=== PATIENT | male | born 1945 | race Caucasian/White ===

== ENCOUNTER 2018-06-30 12:12 | Emergency (ER) | payer MEDICARE, OTHER, SELFPAY ==
[2018-06-30 12:19] VITALS: BP 165/83; PULSE 70; RESP 20; TEMP 36.7; O2SAT 99; BMI 26.2
--- NOTE | 2018-06-30 13:01 | DI.US.S_ITS ---
PROCEDURE: US SCROTUM INDICATIONS: R scrotal swelling and pain TECHNIQUE: Real-time scanning was performed of the scrotum and testicles, with image documentation. Color and pulse Doppler interrogation was performed of both testicles. COMPARISON: None. FINDINGS: Right: Testicle is normal in size at the 4 x 2.0 x 3.0 cm, and homogenous in echotexture. There is a large simple appearing right epididymal head cyst measuring up to 5.1 cm. No hydrocele or varicoceles. Overlying scrotal skin is normal in thickness. Left: Testicle is normal in size at 3.9 x 1.9 x 2.6 cm, and homogeneous in echotexture. There is an left-sided epididymal head cyst measuring up to 2.2 cm. No varicoceles. There is a small varicocele identified on the left, which is more pronounced with Valsalva measures up to 7 mm in diameter. Overlying scrotal skin is normal in thickness. Doppler: Color and pulse Doppler demonstrate normal and symmetric arterial flow in both testicles. IMPRESSION: 1. No evidence of a testicular mass, testicular torsion, or epididymal orchitis. 2. Large bilateral epididymal cysts (right greater than left). 3. Small left-sided varicocele. Dictated by: Ryan Maguire M.D. on 06/30/2018 at 14:01 Approved by: Ryan Maguire M.D. on 06/30/2018 at 14:07
--- NOTE | 2018-06-30 13:20 | ED_ITS ---
HPI - Male Genitourinary General Chief complaint: Urogenital-Male Stated complaint: ENLARGED TESTICLE Time Seen by Provider: 06/30/18 12:22 Source: patient Mode of arrival: ambulatory Limitations: no limitations History of Present Illness HPI Narrative: Patient complains of an enlarged and uncomfortable right testicle. He states that this has been going on for several days, and he is concerned and wants to make sure everything is okay. Patient denies any fevers or chills; no dysuria; no penile discharge. Patient is and has been monogamous for years. Patient has no history of diabetes or cancer. He is otherwise healthy. No other complaints this time. No history of hernia; no change in the degree of swelling with upright position versus supine, although patient does note that the pain seems to get worse when he lays back. Patient has not noticed any testicular mass or enlarged lymph nodes. Related Data Home Medications Medication Instructions Recorded Confirmed ferrous sulfate 27 mg iron tablet 2 tab PO DAILY tab 06/28/18 06/30/18 Allergies Allergy/AdvReac Type Severity Reaction Status Date / Time NO KNOWN DRUG ALLERGIES - Allergy Unknown Uncoded 06/28/18 11:13 NKDA Review of Systems Review of Systems All systems reviewed & are unremarkable except as noted in HPI and below Constitutional Denies chills, Denies fever(s), Denies lethargy and Denies weakness Eyes Denies change in vision, Denies eye discharge, Denies irritation and Denies loss of vision ENT Ears, Nose, Mouth, and Throat: Denies change in voice, Denies neck pain and Denies sore throat Cardiovascular Denies chest pain, Denies irregular heart rhythm, Denies lightheadedness, Denies palpitations, Denies dyspnea, Denies dyspnea on exertion and Denies orthopnea Respiratory Denies cough, Denies dyspnea, Denies dyspnea on exertion and Denies wheezing Gastrointestinal Gastrointestinal: Denies abdominal pain, Denies change in bowel habits, Denies diarrhea, Denies nausea and Denies vomiting Genitourinary Denies hematuria, Denies flank pain, Reports scrotal swelling, Denies urinary incontinence and Denies urinary urgency Musculoskeletal Denies neck pain Integumentary/Breasts Denies pruritus, Denies erythema, Denies rash and Denies wounds Neurologic Denies confusion, Denies loss of vision and Denies weakness Psychiatric Denies anxiety, Denies confusion, Denies depression, Denies homicidal ideation and Denies suicidal ideation Endocrine Denies palpitations Hematologic/Lymphatic Denies easy bruising Allergic/Immunologic Denies wheezing [facility] Medical History GERD (gastroesophageal reflux disease) (Chronic 1995) Hearing loss (Chronic 1951) Left rotator cuff tear (Chronic 2000) Right rotator cuff tear (Chronic 1981) Shoulder pain (Chronic 2015) Tinnitus (Chronic 2004) Anemia (Resolved) Chicken pox (Resolved 1955) Fractures (Resolved) Measles (Resolved 1951) Mumps (Resolved 1952) Recurrent sinusitis (Resolved 1969) Surgical History Anesthesia (Resolved) History of sinus surgery (Resolved 1993) Status post hemorrhoidectomy (Resolved 2002) Family History Brother Cancer Glioblastoma Father Cancer Mesothelioma Grandfather Heart disease Grandmother Heart disease Mother Heart disease Parkinson's disease Grandfather Accident Grandmother No problems noted. Social History Smoking Status: Former smoker Exam Initial Vital Signs Initial Vital Signs: Vital Signs Temperature 98.1 F 06/30/18 12:19 Pulse Rate 70 06/30/18 12:19 Respiratory Rate 20 06/30/18 12:19 Blood Pressure 165/83 H 06/30/18 12:19 Pulse Oximetry 99 06/30/18 12:19 Const General: cooperative and well developed Nutritional Appearance: well nourished Orientation: alert, awake, oriented x3 and not confused [facility] Head: normocephalic and atraumatic Ears: external ears normal and TM's normal bilaterally Nose: external nose normal and No nasal discharge Face and sinus: sinuses nontender, face symmetric, no sinus tenderness and No dry mucous membranes Mouth: oral mucosae normal and moist mucous membranes Teeth and gingiva: dentition normal Throat: tonsils normal and uvula midline Eyes General: appearance normal, both eyes and all related structures Eyelids: eyelids normal Conjunctivae: conjunctivae normal Sclera: sclerae normal Pupils: PERRL EOM: EOM intact bilaterally Neck Neck: normal visual inspection, trachea midline, No lymphadenopathy, No midline deformity and No JVD Lymphatic: No lymphedema Chest Chest: normal inspection of the chest Resp Effort & Inspection: normal respiratory effort, able to speak in complete sentences, no respiratory distress and no use of accessory muscles Auscultation: clear to auscultation bilaterally, no rales, no rhonchi and no wheezes Cardio Rate: regular rate Rhythm: regular rhythm Heart Sounds: no click, no gallops, no murmurs and no rubs Pulses: normal peripheral pulses GI Inspection: non-distended Palpation: soft, no hepatosplenomegaly, No guarding, No pulsatile mass and No tender Auscultation: normal bowel sounds Other: Patient has no skin changes of his scrotum. Testicles feel about equal in size, are nontender, and no masses are palpable. No hernia is noted on exam. No lymphadenopathy inguinal E. No penile discharge. Right scrotum may be slightly bigger than the left. Back/Spine/Pelvis Back: No CVA tenderness Cervical Spine: cervical ROM normal and No pain with cervical ROM Thoracic/Lumbar Spine: thoracic and lumbar spine normal to inspection Skin General: no rashes or lesions noted, No jaundice and No petechiae Neuro General: alert, oriented x3, gait normal and no focal motor deficits Speech: speech normal Extrem General: full ROM, no clubbing, cyanosis or edema, no pedal edema and no calf tenderness Psych Appearance: well kempt Mental Status: mental status grossly normal Attitude: cooperative Thought Content: normal and suicidality Judgment: judgment good Course Course Narrative: Ultrasound was performed of the patient's scrotum to evaluate his complaints of discomfort and a sense of enlargement. Orders Ordered: ED Orders 06/30/18 13:01 US scrotum Stat Vital Signs - 8 hr 06/30/18 12:19 Temperature 98.1 F Pulse Rate 70 Respiratory Rate 20 Blood Pressure 165/83 H Pulse Oximetry 99 MDM - Male Genitourinary Medical Records Attestation: I reviewed the patient's medical records. Imaging Data US scrotum: Radiologist's impression: [address] [address] Ultrasound Report Signed Patient: Johny Rosales MR#: [id number] : 1945 Acct:[id number] Age/Sex: 72 / M Date of Service: 12/13/18 Loc: ED Accession Number: [id number] Procedure: US scrotum Ordering Provider: Danielle Coleman MD PROCEDURE: US SCROTUM INDICATIONS: R scrotal swelling and pain TECHNIQUE: Real-time scanning was performed of the scrotum and testicles, with image documentation. Color and pulse Doppler interrogation was performed of both testicles. COMPARISON: None. FINDINGS: Right: Testicle is normal in size at the 4 x 2.0 x 3.0 cm, and homogenous in echotexture. There is a large simple appearing right epididymal head cyst measuring up to 5.1 cm. No hydrocele or varicoceles. Overlying scrotal skin is normal in thickness. Left: Testicle is normal in size at 3.9 x 1.9 x 2.6 cm, and homogeneous in echotexture. There is an left-sided epididymal head cyst measuring up to 2.2 cm. No varicoceles. There is a small varicocele identified on the left, which is more pronounced with Valsalva measures up to 7 mm in diameter. Overlying scrotal skin is normal in thickness. Doppler: Color and pulse Doppler demonstrate normal and symmetric arterial flow in both testicles. IMPRESSION: 1. No evidence of a testicular mass, testicular torsion, or epididymal orchitis. 2. Large bilateral epididymal cysts (right greater than left). 3. Small left-sided varicocele. Dictated by: Ryan Maguire M.D. on 06/30/2018 at 14:01 Approved by: Ryan Maguire M.D. on 06/30/2018 at 14:07 [facility] Narrative Medical decision making narrative: I discussed the patient's findings with him, and that patient has bilateral testicular cysts, with the right say being quite a bit larger than the left, as well as of presence of varicocele, and that the cyst is most likely the cause of the patient's discomfort and recent enlargement. We have discussed symptomatic treatment, as well as the need for follow-up with Dr. Brown, and possibly, a urologist. Patient expresses understanding. We have discussed usual indications for return. Discharge Plan Departure Patient Disposition: Home Clinical Impression: Cyst of epididymis determined by ultrasound Discharge Date/Time: 06/30/18 14:26 Interventions: ED Discharge Assessment Last Done: 06/30/18 14:26 Activity Restrictions/Additional Instructions: Your ultrasound showed a cyst of your right epididymis. This may have been there for some time, but more recently expanded, causing your symptoms. Your case has been discussed with Dr. Brown, who states that he will have his office refer you to Urology. He states his office will give you call to let you know about your urology follow-up. Prescriptions: No Action ferrous sulfate 27 mg iron tablet 2 tab PO DAILY RF: 0 Referrals: Geraldo Brown MD [Primary Care Provider] -
[2018-06-30 14:23] VITALS: BP 155/90; PULSE 64; RESP 17; O2SAT 100
== END 2018-06-30 14:26 | disposition home or self-care (01) ==
PROVIDERS: Emergency Provider Emergency Medicine; PCP Internal Medicine
DX: N50.3 Cyst of epididymis (principal)
CPT/HCPCS: 76870; 99282; 99283

== ENCOUNTER → 2020-08-15 13:28 | Outpatient (CLI) | payer MEDICARE, OTHER, SELFPAY ==
[2020-08-15] MEDS: COVID-19 VACC #1, MRNA(MOD) 100 MCG/0.5 ML VIAL IM (13:31)
== END ==
PROVIDERS: PCP Internal Medicine; Visit Provider Internal Medicine
DX: Z23 Encounter for immunization (principal)
CPT/HCPCS: 0011A; 91301

== ENCOUNTER → 2020-09-12 13:16 | Outpatient (CLI) | payer MEDICARE, OTHER, SELFPAY ==
[2020-09-12] MEDS: COVID-19 VACC #2, MRNA(MOD) 100 MCG/0.5 ML VIAL IM (13:24)
== END ==
PROVIDERS: PCP Internal Medicine; Visit Provider Internal Medicine
DX: Z23 Encounter for immunization (principal)
CPT/HCPCS: 0012A; 91301

== ENCOUNTER → 2021-11-19 09:47 | Outpatient (CLI) | payer MEDICARE, OTHER, SELFPAY ==
[2021-11-19 10:31] LABS: Alanine Aminotransferase 13 IU/L (<50); Albumin Globulin Ratio 1.3 (1.0-2.8); Alkaline Phosphatase 73 U/L (38-126); Aspartate Aminotransferase 21 IU/L (17-59); BUN Creatinine Ratio 19.8 (6-22); Bilirubin Total 0.7 mg/dL (0.2-1.3); Blood Urea Nitrogen 20 mg/dL (9-20); Calcium 9.2 mg/dL (8.4-10.2); Carbon Dioxide 31 mmol/L (22-32); Chloride 105 mmol/L (98-107); Cholesterol 188 mg/dL (140-199); Estimated Glomerular Filt Rate > 60 mL/min (>60); Globulin 3.1 g/dL (1.7-4.1); Glucose 101 mg/dL (80-110); HDL Cholesterol 36 mg/dL (40-60); HEMOLYSIS < 15 (0-50); LDL Cholesterol Calculated 122 mg/dL (<100); Potassium 4.8 mmol/L (3.4-5.1); Sodium 138 mmol/L (137-145); Total Protein 7.1 g/dL (6.3-8.2); Triglycerides 150 mg/dL (35-150)
[2021-11-19 10:32] LABS: HEMOLYSIS < 15 (0-50); Iron 63 ug/dL (49-181)
[2021-11-19 10:35] LABS: Add Manual Diff / Slide Review NO; Basophils Absolute Auto 0 /uL (0-100); Basophils Percent Auto 0.7 % (0-2); Eosinophils Absolute Auto 100 /uL (0-450); Eosinophils Percent Auto 2.4 % (2-4); Hematocrit 39.9 % (41-53); Hemoglobin 13.9 g/dL (13.5-17.5); Lymphocytes Absolute Auto 500 /uL (1100-4500); Lymphocytes Percent Auto 12.1 % (25-40); Mean Corpuscular HGB Conc 34.8 % (30-36); Mean Corpuscular Hemoglobin 29.3 PG (26-34); Mean Corpuscular Volume 84.2 fL (80-100); Monocytes Absolute Auto 700 /uL (0-900); Monocytes Percent Auto 14.6 % (3-14); Neutrophils Absolute Auto 3200 /uL (1500-7000); Neutrophils Percent Auto 70.2 % (50-75); Platelet Count 216 X10^3/uL (150-400); Red Blood Cell Count 4.74 X10^6/uL (4.5-5.9); Red Cell Distribution Width 15.4 % (11.6-14.8); White Blood Cell Count 4.5 X10^3/uL (4.5-11.0)
[2021-11-19 10:42] LABS: Percent Iron Saturation 21 % (20-50); Total Iron Binding Capacity 303 ug/dL (261-462); Transferrin 223 mg/dL (206-381)
== END ==
PROVIDERS: PCP Internal Medicine; Referring Provider Internal Medicine; Visit Provider Internal Medicine
DX: E61.1 Iron deficiency (principal); Z13.6 Encounter for screening for cardiovascular disorders; K21.9 Gastro-esophageal reflux disease without esophagitis
CPT/HCPCS: 36415; 80053; 80061; 83540; 83550; 85025

== ENCOUNTER → 2022-03-03 16:21 | Outpatient (CLI) | payer MEDICARE, OTHER, SELFPAY ==
--- NOTE | 2022-03-03 16:24 | DI.RAD.S_ITS ---
PROCEDURE: XR WRIST RT MIN 3V INDICATIONS: wrist pain TECHNIQUE: Or views of the wrist were acquired. COMPARISON: None. FINDINGS: Bones: No fractures or dislocations. No suspicious bony lesions. Bony lucency involving the ulnar styloid tip likely related to either bony erosion or subchondral cystic change. Scaphoid view: Intact scaphoid. Soft tissues: No suspicious soft tissue calcifications. IMPRESSION: Bony lucency involving the ulnar styloid tip; otherwise no definite radiographic abnormality. If pain persists with conservative management, consider cross sectional imaging such as CT or MRI for further assessment. Dictated by: Ernesto Greene [facility] Interpreted: Terrance Calderon MD on 03/03/2022 at 16:38 Transcribed by: PROSPER on 03/03/2022 at 16:39 Approved by: Terrance Calderon M.D. on 03/03/2022 at 17:57
== END ==
PROVIDERS: PCP Internal Medicine; Referring Provider Internal Medicine; Visit Provider Internal Medicine
DX: M25.531 Pain in right wrist (principal)
CPT/HCPCS: 73110

== ENCOUNTER → 2023-09-13 09:21 | Outpatient (CLI) | payer MEDICARE, OTHER, SELFPAY ==
[2023-09-13 11:10] LABS: Alanine Aminotransferase 17 IU/L (<50); Albumin Globulin Ratio 1.3 (1.0-2.8); Alkaline Phosphatase 70 U/L (38-126); Aspartate Aminotransferase 23 IU/L (17-59); BUN Creatinine Ratio 19.2 (6-22); Bilirubin Total 0.9 mg/dL (0.2-1.3); Blood Urea Nitrogen 20 mg/dL (9-20); Calcium 9.6 mg/dL (8.4-10.2); Carbon Dioxide 29 mmol/L (22-32); Chloride 102 mmol/L (98-107); Cholesterol 185 mg/dL (140-199); Estimated Glomerular Filt Rate > 60 mL/min (>60); Glucose 89 mg/dL (80-110); HDL Cholesterol 36 mg/dL (40-60); HEMOLYSIS < 15 (0-50); LDL Cholesterol Calculated 117 mg/dL (<100); Potassium 4.8 mmol/L (3.4-5.1); Sodium 136 mmol/L (137-145); Triglycerides 161 mg/dL (35-150)
== END ==
PROVIDERS: PCP Internal Medicine; Referring Provider Internal Medicine; Visit Provider Internal Medicine
DX: Z13.6 Encounter for screening for cardiovascular disorders (principal); K21.9 Gastro-esophageal reflux disease without esophagitis; Z13.1 Encounter for screening for diabetes mellitus; Z13.220 Encounter for screening for lipoid disorders
CPT/HCPCS: 36415; 80053; 80061

== ENCOUNTER → 2024-04-11 10:36 | Outpatient (CLI) | payer MEDICARE, OTHER, SELFPAY ==
[2024-04-11 12:26] LABS: Add Manual Diff / Slide Review NO; Basophils Absolute Auto 0 /uL (0-100); Basophils Percent Auto 0.5 % (0-2); Eosinophils Absolute Auto 100 /uL (0-450); Eosinophils Percent Auto 2.3 % (2-4); Hematocrit 38.5 % (41-53); Hemoglobin 13.8 g/dL (13.5-17.5); Lymphocytes Absolute Auto 400 /uL (1100-4500); Lymphocytes Percent Auto 9.4 % (25-40); Mean Corpuscular HGB Conc 35.9 % (30-36); Mean Corpuscular Hemoglobin 32.3 PG (26-34); Mean Corpuscular Volume 89.7 fL (80-100); Monocytes Absolute Auto 500 /uL (0-900); Monocytes Percent Auto 10.9 % (3-14); Neutrophils Absolute Auto 3200 /uL (1500-7000); Neutrophils Percent Auto 76.9 % (50-75); Platelet Count 195 X10^3/uL (150-400); Red Blood Cell Count 4.29 X10^6/uL (4.5-5.9); Red Cell Distribution Width 15.7 % (11.6-14.8); White Blood Cell Count 4.2 X10^3/uL (4.5-11.0)
[2024-04-11 15:22] LABS: Alanine Aminotransferase 12 IU/L (<50); Albumin 3.6 g/dL (3.5-5.0); Albumin Globulin Ratio 1.2 (1.0-2.8); Alkaline Phosphatase 78 U/L (38-126); Aspartate Aminotransferase 18 IU/L (17-59); BUN Creatinine Ratio 23.7 (6-22); Bilirubin Total 0.6 mg/dL (0.2-1.3); Blood Urea Nitrogen 23 mg/dL (9-20); Calcium 9.2 mg/dL (8.4-10.2); Carbon Dioxide 27 mmol/L (22-32); Chloride 103 mmol/L (98-107); Estimated Glomerular Filt Rate > 60 mL/min (>60); Globulin 2.9 g/dL (1.7-4.1); Glucose 110 mg/dL (80-110); HEMOLYSIS < 15 (0-50); Potassium 4.1 mmol/L (3.4-5.1); Sodium 137 mmol/L (137-145); Total Protein 6.5 g/dL (6.3-8.2)
[2024-04-11 16:45] LABS: HEMOLYSIS < 15 (0-50); Iron 51 ug/dL (49-181)
[2024-04-11 17:00] LABS: Percent Iron Saturation 17 % (20-50); Total Iron Binding Capacity 301 ug/dL (261-462); Transferrin 233 mg/dL (206-381)
[2024-04-11 18:04] LABS: TSH w/ Reflex to FT4 1.84 uIU/mL (0.47-4.68)
== END ==
PROVIDERS: PCP Internal Medicine; Referring Provider Internal Medicine; Visit Provider Internal Medicine
DX: K21.9 Gastro-esophageal reflux disease without esophagitis (principal); D64.9 Anemia, unspecified
CPT/HCPCS: 36415; 80053; 83540; 83550; 84443; 85025

== ENCOUNTER → 2025-05-10 09:02 | Outpatient (CLI) | payer MEDICARE, OTHER, SELFPAY ==
[2025-05-10 09:54] LABS: Add Manual Diff / Slide Review NO; Hematocrit 41.5 % (41-53); Hemoglobin 14.0 g/dL (13.5-17.5); Lymphocytes Absolute Auto 500 /uL (1100-4500); Mean Corpuscular HGB Conc 33.7 % (30-36); Mean Corpuscular Hemoglobin 27.7 PG (26-34); Mean Corpuscular Volume 82.2 fL (80-100); Platelet Count 236 X10^3/uL (150-400)
[2025-05-10 10:15] LABS: Alanine Aminotransferase 12 IU/L (<50); Albumin 3.9 g/dL (3.5-5.0); Albumin Globulin Ratio 1.3 (1.0-2.8); Alkaline Phosphatase 73 U/L (38-126); Blood Urea Nitrogen 19 mg/dL (9-20); Calcium 9.8 mg/dL (8.4-10.2); Carbon Dioxide 29 mmol/L (22-32); Chloride 101 mmol/L (98-107); Cholesterol 188 mg/dL (140-199); Estimated Glomerular Filt Rate > 60 mL/min (>60); Globulin 2.9 g/dL (1.7-4.1); Glucose 92 mg/dL (70-99); HDL Cholesterol 41 mg/dL (40-60); HEMOLYSIS < 15 (0-50); Potassium 4.6 mmol/L (3.4-5.1); Sodium 136 mmol/L (137-145); Total Protein 6.8 g/dL (6.3-8.2); Triglycerides 169 mg/dL (35-150)
[2025-05-10 10:20] LABS: HEMOLYSIS < 15 (0-50); Iron 63 ug/dL (49-181)
[2025-05-10 10:33] LABS: Percent Iron Saturation 20 % (20-50); Total Iron Binding Capacity 312 ug/dL (261-462); Transferrin 259 mg/dL (206-381)
== END ==
PROVIDERS: PCP Internal Medicine; Referring Provider Internal Medicine; Visit Provider Internal Medicine
DX: D64.9 Anemia, unspecified (principal); E78.5 Hyperlipidemia, unspecified; E61.1 Iron deficiency
CPT/HCPCS: 36415; 80053; 80061; 83540; 83550; 85025